=== PATIENT | female | born 1990 | race Two or more races ===

== ENCOUNTER 2018-04-05 15:39 | Emergency (ER) | payer OTHER ==
--- NOTE | 2018-04-05 15:58 | ED Physician Documentation ---
PD HPI UPPER EXT INJURY - Stated complaint Stated Complaint: L THUMB INJ - Chief complaint Chief Complaint: Ext Problem - History obtained from History obtained from: Patient - History of Present Illness Location: Left, Finger (thumb) Type of injury: Blunt / blow Where injury occurred: Work Timing - onset: Today Timing - duration: Minutes Timing - details: Abrupt onset, Still present Improved by: Rest, Immobilization Worsened by: Moving, Palpating Associated symptoms: Swelling. 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 Review of Systems Constitutional: denies: Fever Respiratory: denies: Cough GI: denies: Vomiting Skin: denies: Rash, Laceration (s) Musculoskeletal: reports: Extremity pain. denies: Neck pain, Back pain PD PAST MEDICAL HISTORY - Past Medical History Past Medical History: Yes Psych: Depression - Past Surgical History Past Surgical History: Yes - Present Medications Home Medications: Ambulatory Orders Medication Instructions Recorded Confirmed Sertraline HCl [Zoloft] 150 mg PO DAILY 04/05/18 - Allergies Allergies/Adverse Reactions: Allergies Allergy/AdvReac Type Severity Reaction Status Date / Time No Known Drug Allergies Allergy Verified 04/05/18 15:54 - Social History Does the pt smoke?: Yes Smoking Status: Current every day smoker Does the pt drink ETOH?: Yes Does the pt have substance abuse?: No - Immunizations Immunizations are current?: Yes PD ED PE NORMAL - Vitals Vital signs reviewed: Yes (normal) - General General: Alert and oriented X 3, No acute distress, Well developed/nourished - HEENT HEENT: Atraumatic, PERRL - Respiratory Respiratory: No respiratory distress - Derm Derm: Normal color, Warm and dry, No rash - Extremities Extremities: Other (There is swelling to the distal phlange of the left thumb. The nail is not broken ) - Neuro Neuro: Alert and oriented X 3, No motor deficit, No sensory deficit, Normal speech Eye Opening: Spontaneous Motor: Obeys Commands Verbal: Oriented GCS Score: 15 - Psych Psych: Normal mood, Normal affect Results - Vitals Vitals: Vital Signs - 24 hr 04/05/18 15:41 Temperature 36.5 C Heart Rate 62 Respiratory 16 Rate Blood Pressure 106/59 L O2 Saturation 99 Oxygen O2 Source Room air - Rads (name of study) left thumb Radiology: Prelim report reviewed (Impression: No acute radiographic abnormalities.), EMP read indepedently, See rad report PD MEDICAL DECISION MAKING - ED course Complexity details: reviewed results, re-evaluated patient, considered differential, d/w patient ED course: 28-year-old female with a contusion to the thumb with a hammer has no evidence of fracture to the distal tuft. She does have a small subungual hematoma that looks like it is blood through the side of the nail. She is having about a 5 out of 10 pain and she is able to take both ibuprofen and Tylenol. No other specific treatment is provided. - Sepsis Event Vital Signs: Vital Signs - 24 hr 04/05/18 15:41 Temperature 36.5 C Heart Rate 62 Respiratory 16 Rate Blood Pressure 106/59 L O2 Saturation 99 Oxygen O2 Source Room air Departure - Departure Disposition: 01 Home, Self Care Clinical Impression: Contusion of thumb (nail) Qualifiers: Encounter type: initial encounter Laterality: left Qualified Code(s): S60.112A - Contusion of left thumb with damage to nail, initial encounter Condition: Stable Instructions: ED Contusion Hand Follow-Up: DIA Ruiz [Provider Group]
--- NOTE | 2018-04-05 16:48 | XRAY Preliminary Report ---
Exam: XR HAND 3 VIEW LT IMPRESSION: No acute radiographic abnormalities. [facility] SITE ID: [id number]
--- NOTE | 2018-04-05 16:48 | XRAY Report ---
EXAM: LEFT HAND RADIOGRAPHY EXAM DATE: 04/05/2018 04:15 PM. CLINICAL HISTORY: Thumb contusion. COMPARISON: None. TECHNIQUE: 3 views. FINDINGS: Bones: No acute fractures or suspicious bone lesions. Joints: No subluxations. Soft Tissues: Unremarkable. IMPRESSION: No acute radiographic abnormalities. [facility] Referring Provider Line: [phone] SITE ID: [id number]
[2018-04-05 17:13] VITALS: BP 97/58
== END 2018-04-05 17:09 | disposition home or self-care (01) ==
LOC: ED 15:39
DX: S60.112A Contusion of left thumb with damage to nail, initial encounter (principal); W22.8XXA Striking against or struck by other objects, initial encounter; Y99.1 Military activity; F17.200 Nicotine dependence, unspecified, uncomplicated
CPT/HCPCS: 99282; 99283